=== PATIENT | female | born 1935 | race Caucasian/White ===

== ENCOUNTER → 2019-11-15 | Outpatient (CLI) | payer MEDICARE ==
[2019-11-15 10:14] LABS: BASO # 0.1 (0.0-0.2); EOS # 0.4 (0.0-0.7); EOS % 3.7 % (0-4.0); GRAN # 5.1 (1.4-6.5); GRAN % 48.3 % (42.2-75.2); HEMOGLOBIN 11.2 g/dl (12.5-16.0); LYMPH # 3.9 (1.2-3.4); LYMPH % 37.1 % (20.0-51.0); MEAN CELL VOLUME 94 fl (80.0-100.0); MEAN CORPUSCULAR HEMOGLOBIN 29 pg (27.0-31.0); MEAN CORPUSCULAR HGB CONC 31 g/dl (33.0-37.0); MEAN PLATELET VOLUME 12.1 fl (7.4-10.4); MONO % 9.1 % (1.7-9.3); PLATELET COUNT 214 K/mm3 (130-400); RED BLOOD COUNT 3.85 M/mm3 (4.10-5.30); REDCELL DISTRIBUTION WIDTH-CV 14.1 % (11.5-14.5)
[2019-11-15 10:15] LABS: HEMATOCRIT 36.1 % (37.0-47.0)
[2019-11-15 11:34] LABS: MUCOUS Present /lpf; PH 5 (5-8); SQUAMOUS EPITHELIAL 20-50 /hpf; URINE APPEARANCE Cloudy; URINE BACTERIA Rare /hpf; URINE BILIRUBIN Negative (NEGATIVE); URINE BLOOD Negative (NEGATIVE); URINE CALCIUM OXALATE CRYSTAL Present /hpf; URINE COLOR Yellow; URINE GLUCOSE 3+ (NEGATIVE); URINE KETONE Negative (NEGATIVE); URINE LEUKOCYTE ESTERASE Trace (NEGATIVE); URINE NITRATE Negative (NEGATIVE); URINE PROTEIN(semi-quant) 1+ (NEGATIVE); URINE UROBILINOGEN Negative (NEGATIVE)
[2019-11-15 12:36] LABS: COLLECTION METHOD CLEAN CATCH
== END ==
LOC: ZLAB.STJ 09:19
DX: E11.9 Type 2 diabetes mellitus without complications (principal); N39.0 Urinary tract infection, site not specified; N18.3 Chronic kidney disease, stage 3 (moderate)

== ENCOUNTER 2019-12-07 22:13 | Inpatient (IN) | payer MEDICARE ==
[~2019-12-07] VITALS: Ht 160 cm; Wt 115.3 kg
[2019-12-07 22:59] LABS: BASO # 0.1 (0.0-0.2); BASO % 0.5 % (0.0-2.0); EOS % 0.1 % (0-4.0); GRAN % 85.2 % (42.2-75.2); HEMOGLOBIN 11.1 g/dl (12.5-16.0); LYMPH # 0.9 (1.2-3.4); LYMPH % 7.3 % (20.0-51.0); MEAN CELL VOLUME 94 fl (80.0-100.0); MEAN CORPUSCULAR HEMOGLOBIN 29 pg (27.0-31.0); MEAN CORPUSCULAR HGB CONC 31 g/dl (33.0-37.0); MEAN PLATELET VOLUME 10.7 fl (7.4-10.4); MONO # 0.8 (0.1-0.6); PLATELET COUNT 221 K/mm3 (130-400); REDCELL DISTRIBUTION WIDTH-CV 14.2 % (11.5-14.5)
[2019-12-07 23:06] LABS: HEMATOCRIT 35.8 % (37.0-47.0)
[2019-12-07 23:14] LABS: BILIRUBIN,TOTAL 0.8 mg/dL (0.0-1.0); CREATININE, serum 1.28 (0.52-1.25); POTASSIUM 4.1 mmol/L (3.4-5.0); TOTAL PROTEIN 7.4 gm/dL (6.4-8.2)
[2019-12-07 23:26] LABS: C-REACTIVE PROTEIN 21.4 mg/dL (0.0-0.9); TROPONIN-I 0.038 ng/mL (0.000-0.035)
[2019-12-08] MEDS ORDERED: FERROUS GL325 MG/TAB (00:58)
[2019-12-08] MEDS ORDERED: LIPITOR 40MG TA40 MG PO (01:00)
[2019-12-08] MEDS ORDERED: ASPIRIN 81M81 MG/TA2 PO (01:01)
[2019-12-08] MEDS ORDERED: TYLENOL 325MG325 MG PO (01:01)
[2019-12-08] MEDS ORDERED: ZOLOFT 50MG50 MG PO (01:02)
[2019-12-08] MEDS ORDERED: MIRALAX PA17 GM/Dose PO (01:03)
[2019-12-08] MEDS ORDERED: SINEMET 25/101 UDTAB PO (01:03)
[2019-12-08] MEDS ORDERED: DULCOLAX S10 MG/SUPP RC (01:04)
[2019-12-08] MEDS ORDERED: SENOKOT8.6 MG PO (01:04)
[2019-12-08] MEDS ORDERED: MILK OF MA400 MG/52 (01:05)
[2019-12-08] MEDS ORDERED: PEPCID 20MG TAB20 MG PO (01:15)
[2019-12-08] MEDS ORDERED: LINZESS290CAP (01:16)
[2019-12-08] MEDS ORDERED: VITAMIN D31000 I1 PO (01:17)
[2019-12-08] MEDS ORDERED: CALCIUM 600-D 61 TAB PO (01:18)
[2019-12-08] MEDS ORDERED: MULTI VITAMINS1 TAB PO (01:19)
[2019-12-08] MEDS ORDERED: NORVASC 10MG10 MG PO (01:19)
[2019-12-08] MEDS ORDERED: BUMEX0.5 MG PO (01:20)
[2019-12-08] MEDS ORDERED: LIQUIFILM TEARS15 ML OU (01:21)
[2019-12-08] MEDS ORDERED: MELATONIN5 M1 SL (01:21)
[2019-12-08] MEDS ORDERED: ROBAXIN 75750 MG/TAB PO (01:22)
[2019-12-08] MEDS ORDERED: NOVLOG SQ (01:23)
[2019-12-08] MEDS ORDERED: REQUIP0.25 MG PO (01:23)
[2019-12-08] MEDS ORDERED: LANTUS100 U/ML SQ (01:25)
[2019-12-08] MEDS ORDERED: NORCO 325 MG-51 TAB PO (01:25)
[2019-12-08] MEDS ORDERED: ULTRAM 50MG TAB50 MG PO (01:26)
[2019-12-08 02:07] VITALS: BP 133/61; PULSE 94; TEMP 97.7
[2019-12-08] MEDS ORDERED: ATROVENT I0.2 MG/1 M IH (03:16)
[2019-12-08] MEDS ORDERED: LOTSPY TOP (03:17)
--- NOTE | 2019-12-08 03:48 | NUR ---
Patient to room 346 at 0200. transferred via slid board from stretcher to bed. alert and oriented. c/o moderate pain to abd and back. prn dilaudid given. admission assessment done. med rx done. blister to top of L foot noted. ice chips provided. attempted to give report to [facility] x2 with no answer, no option to leave voicemail. will report to day shift. patient is stable, no further needs at this time. will continue to monitor.
[2019-12-08 07:16] VITALS: BP 122/60; PULSE 88; TEMP 97.9
--- NOTE | 2019-12-08 08:00 | NUR ---
Patient resting in bed at this time. Patient rouses easily but returns to sleep quickly. Patient currently denies pain, nausea, episodes of emesis. Denies needs at this time, call light within reach.
[2019-12-08 09:13] LABS: BASO # 0.1 (0.0-0.2); BASO % 0.5 % (0.0-2.0); EOS % 0.1 % (0-4.0); GRAN # 8.6 (1.4-6.5); GRAN % 68.6 % (42.2-75.2); LYMPH # 2.6 (1.2-3.4); LYMPH % 20.3 % (20.0-51.0); MEAN CELL VOLUME 96 fl (80.0-100.0); MEAN CORPUSCULAR HGB CONC 31 g/dl (33.0-37.0); MEAN PLATELET VOLUME 11.1 fl (7.4-10.4); MONO # 1.2 (0.1-0.6); MONO % 9.8 % (1.7-9.3); PLATELET COUNT 235 K/mm3 (130-400); RED BLOOD COUNT 3.16 M/mm3 (4.10-5.30); REDCELL DISTRIBUTION WIDTH-CV 14.3 % (11.5-14.5)
[2019-12-08 09:19] LABS: HEMATOCRIT 30.2 % (37.0-47.0); HEMOGLOBIN 9.4 g/dl (12.5-16.0); MEAN CORPUSCULAR HEMOGLOBIN 30 pg (27.0-31.0)
[2019-12-08 09:35] LABS: ALBUMIN 3.3 gm/dL (3.5-5.0); BILIRUBIN,TOTAL 0.4 mg/dL (0.0-1.0); CALCIUM 8.1 mg/dL (8.4-10.2); CREATININE, serum 1.12 (0.52-1.25); MAGNESIUM 1.9 mg/dL (1.6-2.3); TOTAL PROTEIN 6.2 gm/dL (6.4-8.2)
[2019-12-08 12:09] VITALS: BP 139/59; PULSE 83; TEMP 98.6
[2019-12-08 16:10] VITALS: BP 135/54; PULSE 88; TEMP 98
[2019-12-08 19:50] VITALS: BP 142/64; PULSE 91; TEMP 98.3
--- NOTE | 2019-12-08 20:00 | NUR ---
Report received. 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 A&Ox3. Assessment complete. VS stable. Denies pain/nausea/shortness of breath. Tolerating clear liquids. Plan of care discussed for pain control, HS meds and needing UA. Verbalizes understanding. Denies questions or concerns-states "Im so tired I havent slept in days." Denies needs. Call light in reach/bed in low. Will monitor.
--- NOTE | 2019-12-08 22:00 | NUR ---
Called out due to pain. States pain is in her abdomen-right side-described as shooting/throbbing pain. Rates 6/10 on pain scale. Dilaudid given per dr love.
[2019-12-08 22:33] LABS: COLLECTION METHOD CLEAN CATCH
[2019-12-08 22:44] LABS: MUCOUS Present /lpf; PH 5 (5-8); URINE APPEARANCE Hazy; URINE BACTERIA None Seen /hpf; URINE BILIRUBIN Negative (NEGATIVE); URINE BLOOD Negative (NEGATIVE); URINE COLOR Yellow; URINE GLUCOSE Negative (NEGATIVE); URINE KETONE Trace (NEGATIVE); URINE LEUKOCYTE ESTERASE 1+ (NEGATIVE); URINE NITRATE Negative (NEGATIVE); URINE PROTEIN(semi-quant) 1+ (NEGATIVE); URINE UROBILINOGEN Negative (NEGATIVE)
[2019-12-08 23:36] VITALS: BP 155/62; PULSE 86; TEMP 98.4
--- NOTE | 2019-12-09 00:30 | NUR ---
C/O pain to right upper quadrant described as constant throbbing-rating 6/10 on pain scale. Dilaudid given per dr love.
--- NOTE | 2019-12-09 02:20 | NUR ---
C/O pain to left side abdomen-rates pain 8-described as constant pressure with sharp stabs that keep waking her up. Dilaudid given per dr love. Will monitor.
--- NOTE | 2019-12-09 02:54 | NUR ---
Pain reassessed at this time. States pain is not any better. States pain is now in the right upper quadrant-rating 8/10-described as throbbing with sharp intermittent pains. 2nd dose of Dilaudid given per dr order. Will monitor.
--- NOTE | 2019-12-09 03:30 | NUR ---
Resting eyes closed-audible snore. No s/s of pain noted.
[2019-12-09 03:52] VITALS: BP 142/56; PULSE 90; TEMP 98.4
--- NOTE | 2019-12-09 05:30 | NUR ---
C/O pain to right upper quadrant-rating 7/10-described as sharp intermittent pains that radiate to right lower quadrant. Dilaudid given per dr kate. Will monitor.
[2019-12-09 06:21] LABS: BASO # 0.1 (0.0-0.2); BASO % 0.8 % (0.0-2.0); EOS # 0.3 (0.0-0.7); EOS % 2.9 % (0-4.0); GRAN # 5.5 (1.4-6.5); GRAN % 56.6 % (42.2-75.2); LYMPH # 2.7 (1.2-3.4); LYMPH % 27.8 % (20.0-51.0); MEAN CELL VOLUME 95 fl (80.0-100.0); MEAN CORPUSCULAR HGB CONC 30 g/dl (33.0-37.0); MONO # 1.1 (0.1-0.6); MONO % 11.2 % (1.7-9.3); PLATELET COUNT 256 K/mm3 (130-400); RED BLOOD COUNT 3.29 M/mm3 (4.10-5.30); REDCELL DISTRIBUTION WIDTH-CV 14.3 % (11.5-14.5)
[2019-12-09 06:25] LABS: HEMATOCRIT 31.2 % (37.0-47.0); HEMOGLOBIN 9.4 g/dl (12.5-16.0); MEAN CORPUSCULAR HEMOGLOBIN 29 pg (27.0-31.0)
[2019-12-09 06:34] LABS: ALBUMIN 3.2 gm/dL (3.5-5.0); BILIRUBIN,TOTAL 0.5 mg/dL (0.0-1.0); CALCIUM 7.9 mg/dL (8.4-10.2); CREATININE, serum 1.32 (0.52-1.25); MAGNESIUM 1.9 mg/dL (1.6-2.3); POTASSIUM 3.8 mmol/L (3.4-5.0); TOTAL PROTEIN 6.3 gm/dL (6.4-8.2)
[2019-12-09 07:43] VITALS: BP 141/66; PULSE 95; TEMP 98.8
--- NOTE | 2019-12-09 08:00 | NUR ---
Patient resting in bed at this time. Patient is alert and oriented, answers questions appropriately. Patient is moaning in bed and states that she is having 10/10 pain in her RUQ that radiates down her right side. Patient requests PRN pain medication; medication administered per order. Patient denies further needs at this time, call light within reach.
[2019-12-09 12:20] VITALS: BP 144/72; PULSE 92; TEMP 98
[2019-12-09 16:25] VITALS: BP 129/67; PULSE 86; TEMP 98
--- NOTE | 2019-12-09 18:24 | NUR ---
Patient currently resting in bed. Patient joslyns easily reports some improvement in pain, still rates it a 6/10. Patient denies needs at this time, call light within reach.
--- NOTE | 2019-12-09 18:40 | NUR ---
Patient has been resting in bed all day. Has been complaining of pain in her right abdomen. Patient has been recieving Hydrocodone PRN.
--- NOTE | 2019-12-09 19:30 | NUR ---
Report received. Assumed care for third shift lieutenant. Assessment complete. A&Ox3. VS stable. C/O pain to right upper quadrant that radiates down to right lower quadrant-rating 6/10-described as cramp/throb. Glennie one tab given per dr order. Denies nausea/shortness of breath. Repositioned in bed with pillow support. IV to left hand flushes without difficulty. Tolerating some clear liquids. Plan of care discussed for this shift. Denies questions/concerns. Call light in reach. Will monitor.
[2019-12-09 19:43] VITALS: BP 133/59; PULSE 86; TEMP 98
--- NOTE | 2019-12-09 20:20 | NUR ---
Still with C/O pain-rating 6/10 to RUQ/ 2nd dose of Doyle given per dr order.
[2019-12-09 23:42] VITALS: BP 117/54; PULSE 82; TEMP 97.9
[2019-12-10 03:47] VITALS: BP 141/57; PULSE 86; TEMP 97.9
[2019-12-10 08:32] VITALS: BP 150/71; PULSE 88; TEMP 97.4
[2019-12-10 08:49] LABS: BASO # 0.1 (0.0-0.2); BASO % 1.1 % (0.0-2.0); EOS # 0.4 (0.0-0.7); EOS % 4.1 % (0-4.0); GRAN # 5.8 (1.4-6.5); GRAN % 58.9 % (42.2-75.2); LYMPH # 2.6 (1.2-3.4); LYMPH % 26.5 % (20.0-51.0); MEAN CELL VOLUME 96 fl (80.0-100.0); MEAN CORPUSCULAR HEMOGLOBIN 29 pg (27.0-31.0); MEAN CORPUSCULAR HGB CONC 30 g/dl (33.0-37.0); MEAN PLATELET VOLUME 10.3 fl (7.4-10.4); MONO # 0.9 (0.1-0.6); MONO % 8.7 % (1.7-9.3); PLATELET COUNT 263 K/mm3 (130-400); RED BLOOD COUNT 3.44 M/mm3 (4.10-5.30); REDCELL DISTRIBUTION WIDTH-CV 14.1 % (11.5-14.5)
[2019-12-10 09:00] LABS: CALCIUM 8.1 mg/dL (8.4-10.2); CREATININE, serum 1.52 (0.52-1.25); MAGNESIUM 2.2 mg/dL (1.6-2.3); POTASSIUM 4.1 mmol/L (3.4-5.0)
--- NOTE | 2019-12-10 10:35 | NUR ---
Rn Liaison attended clinical rounds with the team then met with patient to discuss discharge planning. Patient lives at [facility] and reports she has been there about 5 weeks. Patient states she was at a snf in [place] but that her daughters felt they did not take very good care of her there. Patient reports she cannot walk and uses a power chair for mobility. Patient states she plans to return to [facility] upon discharge. DENAE presented and explained Patient Preference form to patient who selected [facility] then provided signature. DENAE placed form on chart. DENAE contacted patient's daughter Rossy (ph#[phone]) who confirmed patient currently lives at [facility] and utilizes her power chair for mobility. Rossy advised she wants to be notified when patient is cleared for discharge. DENAE contacted Joshua at [facility] and faxed updates. DENAE to continue to follow.
--- NOTE | 2019-12-10 10:39 | NUR ---
Patient is reporting that her pain is better as of today. She is resting comfortably.
--- NOTE | 2019-12-10 11:21 | NUR ---
Patient alert and oriented, answers questions appropriately. See assessment. Abdomen soft, non tender, non distended. Bowel sounds active x4 quads. +Flatus. No c/o nausea or vomiting. No other c/o at this time.
--- NOTE | 2019-12-10 11:21 | NUR ---
Initial visit; Patient thanked Phys Ther for looking in on her and offering comfort and prayer. Patient states she is doing better and Phys Ther wished her well.
[2019-12-10 12:42] VITALS: BP 125/67; PULSE 93; TEMP 97.9
[2019-12-10 16:18] VITALS: BP 137/60; PULSE 88; TEMP 98.1
[2019-12-10 20:06] VITALS: BP 144/71; PULSE 89; TEMP 98.8
--- NOTE | 2019-12-10 21:44 | NUR ---
PATIENT TAKES HS MEDS, REQUESTS NORCO AT THIS TIME. RATES PAIN 8/10 TO RIGHT UPPER ABD. HAS SL TO LEFT HAND, FLUSHES WELL. YT=386 WAS GIVEN 4 UNITS HUMALOG. BILATERAL EDEMA TO LOWER LEGS INTO FEET. HAS DRSG TO TOP OF LEFT FOOT. MOSTLY INCONTINENT AND WEARS DEPENDS. IS ALERT AND ORIENTED X4.
--- NOTE | 2019-12-10 23:20 | NUR ---
PATIENT COMPLAINING OF SHARP PAINS TO RIGHT UPPER ABDOMEN. GIVEN KPAD FOR COMFORT AND MEDICATED WITH DILAUDID 0.25MG IVP AT THIS TIME.
[2019-12-11 00:15] VITALS: BP 142/61; PULSE 88; TEMP 98.5
--- NOTE | 2019-12-11 01:30 | NUR ---
PATIENT ASKING FOR PAIN PILL. RATES PAIN 7/10, NORCO 5/325MG 1 TAB GIVEN AT THIS TIME. KPAD REMAINS TO ABD.
[2019-12-11 03:54] VITALS: BP 142/65; PULSE 89; TEMP 97.6
--- NOTE | 2019-12-11 06:00 | NUR ---
Pt resting in bed, offers no concerns at this time.
[2019-12-11 07:08] LABS: BASO # 0.1 (0.0-0.2); BASO % 1.1 % (0.0-2.0); EOS # 0.4 (0.0-0.7); EOS % 4.5 % (0-4.0); GRAN # 5.1 (1.4-6.5); LYMPH # 2.6 (1.2-3.4); LYMPH % 28.8 % (20.0-51.0); MEAN CELL VOLUME 95 fl (80.0-100.0); MEAN CORPUSCULAR HGB CONC 31 g/dl (33.0-37.0); MEAN PLATELET VOLUME 11.2 fl (7.4-10.4); MONO # 0.8 (0.1-0.6); MONO % 8.2 % (1.7-9.3); PLATELET COUNT 266 K/mm3 (130-400); RED BLOOD COUNT 3.07 M/mm3 (4.10-5.30); REDCELL DISTRIBUTION WIDTH-CV 14.3 % (11.5-14.5)
[2019-12-11 07:09] LABS: HEMATOCRIT 29.2 % (37.0-47.0); HEMOGLOBIN 8.9 g/dl (12.5-16.0); MEAN CORPUSCULAR HEMOGLOBIN 29 pg (27.0-31.0)
[2019-12-11 07:10] VITALS: BP 153/59; PULSE 90; TEMP 97.6
--- NOTE | 2019-12-11 07:10 | NUR ---
Patient alert and orientated, assessment complete. Patient has an INT in left aarm, no redness, edema, or drainage. Patient states that her pain is a 7 or 8 out of 10, on the right upper quadrant of the abdomen. Staes that the pain is sharp and radiates across the abdomen. No complaints of nausea or vomiting, states that has passed flatus. Has no appetite. Patient has no other complaints at this time.
[2019-12-11 07:20] LABS: CALCIUM 7.6 mg/dL (8.4-10.2); CREATININE, serum 1.69 (0.52-1.25); POTASSIUM 3.9 mmol/L (3.4-5.0)
--- NOTE | 2019-12-11 08:16 | NUR ---
Patient states that the pain is an 8 out of 10, the pain is sharp and radiating. Gave 1 tab of Minto dosage 5/325.
--- NOTE | 2019-12-11 10:37 | NUR ---
Patient alert and oriented, answers questions appropriately. See assessment. Abdomen soft, non tender, non distended. Bowel sounds active x4 quads. +Flatus. C/o abdominal "spasms" when some foods eaten. Educated on low fat diet. BLE with 2+ edema noted, pulses palpable. No other c/o at this time.
[2019-12-11 11:18] VITALS: BP 133/56; PULSE 88
--- NOTE | 2019-12-11 13:06 | NUR ---
Envelope Stamping Machine Operator attended clinical rounds with the team. Patient will not discharge today but could tomorrow. SW contacted Holden at [facility] and faxed updates. SW to continue to follow.
--- NOTE | 2019-12-11 13:32 | NUR ---
Pt was laying in bed @ 1315, went in to check to see how she was doing. Pt stated that she was having pain. She rated it a 8 out of 10 on the pain scale. Gave scheduled Sinemet and gave her a Belmond 5/325 tab for pain. Pt is currently gone down with radiology staff to have a CT scan.
[2019-12-11 16:45] VITALS: BP 145/65; PULSE 88; TEMP 98.2
[2019-12-11 20:00] VITALS: BP 136/58; PULSE 95; TEMP 98
--- NOTE | 2019-12-11 21:31 | NUR ---
Pt doing ok. Alert but not oriented x4, some confusion. Pt will not get up or out of bed even though she is strongly encouraged. VSS. Is on tele, in NS. Pt has not had BM this shift. Pulled out IV and restarted in L forearm by nurse. CD&I. SCDs on. Pt denies needs at this time. Call light within reach, will continue to monitor
[2019-12-12 03:39] VITALS: BP 134/58; PULSE 68; TEMP 97.8
[2019-12-12 06:55] VITALS: BP 124/47; PULSE 88; TEMP 98.4
--- NOTE | 2019-12-12 07:00 | NUR ---
Patient alert and orientes- shift assessment completed.
--- NOTE | 2019-12-12 07:00 | NUR ---
Patient alert and oriented--shift assessment complete. IV in left forearm infusing NS at 75ml/hr-- no redness, edema, or drainage. Pt states that she has pain on RUQ of abdomen-- pain is an 8 out of 10. No complaints of nausea or vomiting and she is passing flatus.
--- NOTE | 2019-12-12 07:25 | NUR ---
Patient stated that her pain was an 8 out of 10. States that it is sharp and radiates across her abdomen. Burrton 5/325mg 1 tab.
[2019-12-12 07:53] LABS: CALCIUM 7.8 mg/dL (8.4-10.2); CREATININE, serum 1.55 (0.52-1.25)
[2019-12-12 08:47] LABS: HEMATOCRIT 30.1 % (37.0-47.0); HEMOGLOBIN 9.2 g/dl (12.5-16.0); MEAN CELL VOLUME 96 fl (80.0-100.0); MEAN CORPUSCULAR HEMOGLOBIN 29 pg (27.0-31.0); MEAN CORPUSCULAR HGB CONC 31 g/dl (33.0-37.0); MEAN PLATELET VOLUME 10.8 fl (7.4-10.4); PLATELET COUNT 289 K/mm3 (130-400); RED BLOOD COUNT 3.15 M/mm3 (4.10-5.30); REDCELL DISTRIBUTION WIDTH-CV 14.4 % (11.5-14.5)
[2019-12-12 09:23] LABS: BAND 1 % (0-10); BASOPHIL 2 % (0-2); EOSINOPHIL 3 % (0-4); HYPOCHROMIA 2+; LYMPHOCYTE 28 % (20.0-51.0); METAMYELOCYTE 3 % (0-0); NEUTROPHILS 53 % (42.0-75.2); PLATELET ESTIMATE NORMAL (NORMAL)
[2019-12-12 11:05] VITALS: BP 135/49; PULSE 92; TEMP 98.6
--- NOTE | 2019-12-12 11:09 | NUR ---
Patient sitting up in the chair. Therapy & student nurse assisted patient with sit to stand lift. Pericare was provided & fresh linens. Patient has minimal complaints at this time, she did have a coughing spell, denies nausea. Will monitor.
--- NOTE | 2019-12-12 11:29 | NUR ---
Reported off to Otilia PATRICK
[2019-12-12] MEDS ORDERED: OMNICEF 300MG300 MG PO (13:05)
[2019-12-12] MEDS ORDERED: NORCO 325 MG-51 TAB PO (13:05)
[2019-12-12] MEDS ORDERED: FLAGYL500 MG PO (13:05)
--- NOTE | 2019-12-12 13:21 | NUR ---
Pt currently lying in bed. No complaints of pain at this time. Call light is within reach and bed is in lowest postion.
[2019-12-12 14:47] VITALS: BP 135/49; PULSE 92; TEMP 98.6
--- NOTE | 2019-12-12 14:49 | NUR ---
Campground Manager attended clinical rounds with the team and patient to discharge today. SW contacted Volant at [facility] and established transportation for 1500. DENAE met with patient who is in agreeance to discharge to [facility]. DENAE presented and explained the IM form to patient who verbalized understanding and provided signature. DENAE placed original on chart and provided copy to patient. DENAE contacted patient's daughter Rossy to provide update. DENAE faxed discharge orders to Volant at [facility]. No additional needs at this time.
--- NOTE | 2019-12-12 15:50 | NUR ---
Patient discharged back to [facility]. Report called to nurse & questions answered. Metrology Specialist assisted patient in wheelchair & assisted he to get dressed.Patient Iv dc. Tele off. Denies needs prior to Dc & all belongigns packed.
== END 2019-12-12 15:50 | DRG 872 ==
LOC: COL.ER 22:13 → SURG 12-08 00:42
PROVIDERS: Emergency Medicine; Nurse Practitioner Family; Physician Assistant; ADMIT Student in an Organized Health Care Education/Training Program
DX: A41.9 Sepsis, unspecified organism (principal); K80.00 Calculus of gallbladder with acute cholecystitis without obstruction; I50.32 Chronic diastolic (congestive) heart failure; I13.0 Hypertensive heart and chronic kidney disease with heart failure and stage 1 through stage 4 chronic kidney disease, or unspecified chronic kidney disease; Z68.42 Body mass index [BMI] 45.0-49.9, adult; E11.22 Type 2 diabetes mellitus with diabetic chronic kidney disease; N18.3 Chronic kidney disease, stage 3 (moderate); D63.1 Anemia in chronic kidney disease; I35.0 Nonrheumatic aortic (valve) stenosis; G20 Parkinson's disease; R53.81 Other malaise; I87.2 Venous insufficiency (chronic) (peripheral); E78.5 Hyperlipidemia, unspecified; I25.10 Atherosclerotic heart disease of native coronary artery without angina pectoris; E66.01 Morbid (severe) obesity due to excess calories; K21.9 Gastro-esophageal reflux disease without esophagitis; F41.9 Anxiety disorder, unspecified; F32.9 Major depressive disorder, single episode, unspecified; G89.4 Chronic pain syndrome; Z79.82 Long term (current) use of aspirin; Z79.1 Long term (current) use of non-steroidal anti-inflammatories (NSAID); Z79.4 Long term (current) use of insulin; Z79.891 Long term (current) use of opiate analgesic; Z96.652 Presence of left artificial knee joint; Z90.710 Acquired absence of both cervix and uterus; Z88.0 Allergy status to penicillin; Z88.8 Allergy status to other drugs, medicaments and biological substances
CPT/HCPCS: 99223-AI; 99232-AI; 99233-AI; 99239; A4216; C9113; J0696; J1170; J1644; J1815; J2270; J3010; J7030; Q9967

== ENCOUNTER → 2019-12-31 | Outpatient (CLI) | payer MEDICARE ==
[~2019-12-31] MED LIST: ASPIRIN 81M81 MG/TA2 PO; ATROVENT I0.2 MG/1 M IH; BUMEX0.5 MG PO; CALCIUM 600-D 61 TAB PO; DULCOLAX S10 MG/SUPP RC; FERROUS GL325 MG/TAB; FLAGYL500 MG PO; LANTUS100 U/ML SQ; LINZESS290CAP; LIPITOR 40MG TA40 MG PO; LIQUIFILM TEARS15 ML OU; LOTSPY TOP; MELATONIN5 M1 SL; MILK OF MA400 MG/52; MIRALAX PA17 GM/Dose PO; MULTI VITAMINS1 TAB PO; NORCO 325 MG-51 TAB PO; NORVASC 10MG10 MG PO; NOVLOG SQ; OMNICEF 300MG300 MG PO; PEPCID 20MG TAB20 MG PO; REQUIP0.25 MG PO; ROBAXIN 75750 MG/TAB PO; SENOKOT8.6 MG PO; SINEMET 25/101 UDTAB PO; TYLENOL 325MG325 MG PO; ULTRAM 50MG TAB50 MG PO; VITAMIN D31000 I1 PO; ZOLOFT 50MG50 MG PO
== END ==
LOC: ZLAB.STJ 15:37
DX: R05 Cough (principal)